=== PATIENT | female | born 1950 | race African-American/Black ===

== ENCOUNTER 2020-09-03 04:52 | Emergency (ER) | payer OTHER ==
[~2020-09-03] VITALS: Ht 172.7 cm; Wt 95.0 kg
[2020-09-03 06:52] LABS: BASOPHILS % 0.4 % (0.0-2.0); EOSINOPHILS % 0.4 % (0.0-5.0); HEMATOCRIT. 23.7 % (36.0-48.0); HEMOGLOBIN. 7.8 g/dL (12.0-16.0); MEAN CORPUSCULAR HEMOGLOBIN 26.4 pg (28.0-32.0); MEAN PLATELET VOLUME 7.5 fl (7.4-10.4); MONOCYTES % 3.8 % (2.0-8.0); NEUTROPHILS % 86.4 % (40.0-76.0); PLATELET 338 x1000/uL (130-400); RED BLOOD CELL COUNT 2.96 mill/uL (4.2-5.4); RED CELL DISTRIBUTION WIDTH 16.2 % (11.6-14.6)
[2020-09-03 07:00] LABS: CHLORIDE 114 mEq/L (98-107)
[2020-09-03 07:02] LABS: PROTHROMBIN TIME 10.8 sec (9.6-11.0)
[2020-09-03] MEDS ORDERED: PANTOPRAZOLE SODIUM 40 MG/VIAL IV STA (09:09)
[2020-09-03] MEDS ORDERED: SODIUM CHLORIDE 0.9% 1,000 ML IV ONE (09:30)
[2020-09-03 11:15] VITALS: BP 129/81
== END 2020-09-03 11:33 | disposition short-term general hospital (02) ==
LOC: ER 04:52
DX: K92.1 Melena (principal); I10 Essential (primary) hypertension; Z88.5 Allergy status to narcotic agent
CPT/HCPCS: 36415; 71045; 80053; 83605; 83690; 85025; 85610; 86850; 86900; 86901; 93005; 96361; 96374; 99285; C9113; J7030

== ENCOUNTER 2025-09-01 15:45 | Emergency (ER) | payer OTHER ==
[~2025-09-01] VITALS: Ht 167.6 cm; Wt 56.0 kg
[2025-09-01 15:47] VITALS: O2SAT 96
[2025-09-01] MEDS ORDERED: CEFTRIAXONE 1GM/50ML 50 ML IV ONE (16:15)
[2025-09-01] MEDS: SODIUM CHLORIDE 0.9% (SEPSIS BOLUS) IV ONE (16:31)
[2025-09-01 16:52] LABS: BASOPHILS % 0.4 % (0.0-2.0); EOSINOPHILS % 1.5 % (0.0-5.0); HEMATOCRIT. 42.4 % (36.0-48.0); HEMOGLOBIN. 13.4 g/dL (12.0-16.0); LYMPHOCYTES % 13.7 % (20.0-50.0); MEAN PLATELET VOLUME 7.7 fl (7.4-10.4); MONOCYTES % 6.4 % (2.0-8.0); NEUTROPHILS % 78.0 % (40.0-76.0); PLATELET 341 x1000/uL (130-400); RED BLOOD CELL COUNT 5.37 mill/uL (4.2-5.4); RED CELL DISTRIBUTION WIDTH 16.9 % (11.6-14.6)
[2025-09-01 17:08] LABS: INR 1.0
[2025-09-01 17:09] LABS: CREATININE 1.2 mg/dL (0.6-1.0)
[2025-09-01 17:10] LABS: UREA NITROGEN BLOOD 10 mg/dL (9-23)
[2025-09-01 17:11] LABS: ASPARTATE AMINOTRANSFERASE 15 IU/L (<34)
[2025-09-01 17:12] LABS: BILIRUBIN DIRECT 0.1 mg/dL (<=3.0); BILIRUBIN TOTAL 0.4 mg/dL (0.1-1.0); PROTEIN TOTAL 7.1 g/dL (6.0-8.3); TROPONIN I HIGH SENSITIVITY 4 ng/L (3.0-34)
[2025-09-01] MEDS: CEFTRIAXONE 1GM/50ML 50 ML IV NR (17:37)
[2025-09-01 20:01] VITALS: BP 138/81; PULSE 76; RESP 20; TEMP 36.8; O2SAT 99
== END 2025-09-01 20:11 | disposition short-term general hospital (02) ==
LOC: ER 15:45 → EDBEDREQ 17:39 → ER 20:11 → CMPBEDREQ 09-02 08:20
DX: R55 Syncope and collapse (principal); I10 Essential (primary) hypertension; Z88.5 Allergy status to narcotic agent
CPT/HCPCS: 99291; 96365; 96361; 80076; 80048; 83880; 83605; 85025; 85610; 86850; 86900; 86901; 87040; 84484; 36415; 84145; 71045; 93005; J0696; J7030